=== PATIENT | male | born 1960 | race Caucasian/White ===

== ENCOUNTER 2019-01-12 19:43 | Day surgery (SDC) | payer OTHER ==
[~2019-01-12] VITALS: Ht 188 cm; Wt 141.5 kg
--- NOTE | 2019-01-12 20:11 | NUR ---
PT PRESENTING TO ER FOR RLQ ABD PAIN WITH N/V. PT STATES ANY MOVEMENT MAKES THE PAIN WORSE. NO ABD SX HX. CONNECTED TO ALL MONITORING, TACHY HR, OTHER VSS. DAUGHTER AT BEDSIDE. CALL LIGHTWITHIN REACH. AWAITING ORDERS AT THIS TIME
[2019-01-12] MEDS ORDERED: ONDANSETRON 2MG/ML, 2ML IVPush ONE (20:30)
[2019-01-12] MEDS ORDERED: MORPHINE SULFATE 4 MG/ML, 1ML IVPush PRN ×2 (20:30→22:30)
[2019-01-12] MEDS ORDERED: SODIUM CHLORIDE 0.9% 1,000ML IVBOLUS ONE (20:30)
[2019-01-12] MEDS ORDERED: SODIUM CHLORIDE FLUSH 10ML SYR IVF ONE (20:30)
--- NOTE | 2019-01-12 20:43 | NUR ---
ORDERS RECEIVED. IV PLACED, LABS DRAWN. PT AWARE OF NEED FOR UA. FAMILY AT BEDSIDE. CALL LIGHT WITHIN REACH.
--- NOTE | 2019-01-12 20:48 | NUR ---
PT OFFERED PAIN AND NAUSEA MEDS, DECLINING AT THIS TIME. WILL CONTINUE TO MONITOR
--- NOTE | 2019-01-12 21:07 | NUR ---
TECH AT BEDSIDE FOR EKG
[2019-01-12 21:12] LABS: BASOPHILS # (AUTO) 0.01 x10^3/uL (0-0.1); BASOPHILS % (AUTO) 0 % (0-1); EOSINOPHILS % (AUTO) 0 % (1-7); LYMPHOCYTES # (AUTO) 0.65 x10^3/uL (1-3.4); LYMPHOCYTES % (AUTO) 6 % (22-44); MD NO; MEAN CORPUSCULAR HEMOGLOBIN 29.7 pg (27.5-34.5); MEAN CORPUSCULAR HGB CONC 32.6 g/dL (33.2-36.2); MEAN CORPUSCULAR VOLUME 91.2 fL (81-97); MEAN PLATELET VOLUME 7.5 fL (7.4-10.4); MONOCYTES # (AUTO) 0.32 x10^3/uL (0.2-0.8); MONOCYTES % (AUTO) 3 % (2-9); NEUTROPHILS # (AUTO) 9.83 x10^3/uL (1.8-6.8); NEUTROPHILS % (AUTO) 91 % (42-75); PLATELET COUNT 243 x10^3/uL (130-400); RED BLOOD COUNT 5.04 x10^6/uL (4.38-5.82); RED CELL DISTRIBUTION WIDTH 13.5 % (9.4-14.8)
[2019-01-12 21:23] LABS: ALANINE AMINOTRANSFERASE 36 U/L (12-78); ALBUMIN 3.7 g/dL (3.4-5.0); ANION GAP 6 mmol/L (5-15); CALCIUM 9.5 mg/dL (8.5-10.1); CHLORIDE 105 mmol/L (98-107); CREATININE 0.93 mg/dL (0.7-1.3)
[2019-01-12 21:25] LABS: ALKALINE PHOSPHATASE 39 U/L (45-117); BILIRUBIN,TOTAL 0.3 mg/dL (0.2-1.0); TOTAL PROTEIN 7.3 g/dL (6.4-8.2)
--- NOTE | 2019-01-12 21:36 | NUR ---
PT TAKEN TO CT
[2019-01-12] MEDS ORDERED: OMNIPAQUE 350 MG/ML, 150 ML BOTTLE ONE (21:49)
--- NOTE | 2019-01-12 21:50 | NUR ---
BACK FROM CT. UP TO RESTROOM WITH STEADY GAIT TO OBTAIN SAMPLE.
[2019-01-12] MEDS ORDERED: PIPERACILLIN/TAZO/PMX 3.375GM 50 ML ONE (21:58)
[2019-01-12] MEDS ORDERED: PIPERACILLIN/TAZO/PMX 3.375GM 50 ML IV ONE (22:00)
[2019-01-12] MEDS ORDERED: SODIUM CHLORIDE 0.9% 1,000 ML IV ONE (22:02)
[2019-01-12 22:17] LABS: MICROSCOPIC NOT IND
[2019-01-12] MEDS ORDERED: ATORVASTATIN (22:25)
[2019-01-12] MEDS ORDERED: FISH OIL (22:25)
[2019-01-12] MEDS ORDERED: METOPROLOL (22:25)
[2019-01-12] MEDS ORDERED: ASPI-496 PO (22:25)
[2019-01-12] MEDS ORDERED: GLUCOSAMINE (22:25)
[2019-01-12 22:28] LABS: CULTURE INDICATED? NO
[2019-01-12] MEDS ORDERED: HYDROmorphone 1 MG/ML, 1ML INJ IVPush PRN (22:30)
[2019-01-12] MEDS ORDERED: ONDANSETRON 2MG/ML, 2ML IVPush PRN (22:30)
[2019-01-12] MEDS ORDERED: PROMETHAZINE 25 MG/ML, 1ML IM PRN (22:30)
[2019-01-12] MEDS ORDERED: SODIUM CHLORIDE FLUSH 10ML SYR IVF PRN (22:30)
--- NOTE | 2019-01-12 22:45 | NUR ---
REPORT GIVEN TO RN, PT READY FOR TRANSPORT TO FLOOR
[2019-01-12 23:06] VITALS: BP 108/68
[2019-01-13] VITALS: BP 108/68
[2019-01-13] MEDS ORDERED: HYDROmorphone 1 MG/ML, 1ML INJ IV PRN
[2019-01-13] MEDS ORDERED: PROMETHAZINE 25 MG/ML, 1ML IM PRN
[2019-01-13] MEDS: SODIUM CHLORIDE 0.9% 1,000 ML IV SCH ×3 (00:34→14:40)
[2019-01-13 02:59] VITALS: BP 125/68
[2019-01-13] MEDS: PIPERACILLIN/TAZO/PMX 3.375GM 50 ML IV SCH ×2 (04:23→10:00)
[2019-01-13 07:39] VITALS: BP 112/70
[2019-01-13] MEDS ORDERED: EPINEPHRINE 1 MG/ML, 1ML ONE (10:48)
[2019-01-13] MEDS ORDERED: BUPIVACAINE/PF 0.5% ONE (10:48)
[2019-01-13] MEDS ORDERED: FENTANYL PF 100 MCG/2ML ONE ×2 (11:38→11:52)
[2019-01-13] MEDS ORDERED: MIDAZOLAM 1 MG/ML, 2ML ONE (11:51)
[2019-01-13] MEDS ORDERED: SUGAMMADEX 200 MG/2 ML IVPush ONE (12:01)
[2019-01-13] MEDS ORDERED: ALBUTEROL/IPRATROPIUM 2.5MG/0.5MG, 3 ML NPPB PRN (12:30)
[2019-01-13] MEDS ORDERED: hydrALAzine 20 MG/ML, 1ML IV PRN (12:30)
[2019-01-13] MEDS ORDERED: ONDANSETRON ODT 8 MG PO PRN (12:30)
[2019-01-13] MEDS ORDERED: FENTANYL PF 100 MCG/2ML IV PRN (12:30)
[2019-01-13] MEDS ORDERED: METOPROLOL 1 MG/ML, 5ML IV PRN (12:30)
[2019-01-13] MEDS ORDERED: PROMETHAZINE 25 MG/ML, 1ML IV PRN (12:30)
[2019-01-13] MEDS ORDERED: LABETALOL 5MG/ML, 20ML IV PRN (12:30)
[2019-01-13] MEDS ORDERED: ACETAMINOPHEN 325 MG TABLET PO PRN (12:30)
[2019-01-13] MEDS ORDERED: ONDANSETRON 2MG/ML, 2ML IV PRN (12:30)
[2019-01-13] MEDS ORDERED: HYDROmorphone 2 MG/ML, 1ML IVPush PRN (12:30)
[2019-01-13] MEDS ORDERED: OXYcodone 5 MG/5 ML ORAL.SOL UDC PO PRN ×2 (12:30→17:00)
[2019-01-13] MEDS ORDERED: NEOSTIGMINE 1 MG/ML, 10ML ONE (12:40)
[2019-01-13] MEDS ORDERED: ROCURONIUM 10MG/ML,5ML ONE (12:40)
[2019-01-13] MEDS ORDERED: PROPOFOL 10 MG/ML, 20ML ONE (12:40)
[2019-01-13] MEDS ORDERED: ONDANSETRON 2MG/ML, 2ML ONE (12:40)
[2019-01-13] MEDS ORDERED: DEXAMETHASONE 4 MG/ML, 1ML ONE (12:40)
[2019-01-13] MEDS ORDERED: CEFAZOLIN 1,000 MG ONE ×3 (12:40)
[2019-01-13] MEDS ORDERED: GLYCOPYRROLATE 0.2MG/1ML, 5ML ONE (12:40)
[2019-01-13] MEDS ORDERED: SUCCINYLCHOLINE 20 MG/ML, 10ML ONE (12:40)
[2019-01-13] MEDS ORDERED: KETOROLAC 30 MG/1 ML ONE (13:00)
[2019-01-13] MEDS ORDERED: OXYcodone 5 MG/5 ML ORAL.SOL UDC ONE (13:00)
[2019-01-13] MEDS ORDERED: KETOROLAC 30 MG/1 ML IVPush ONE (13:30)
[2019-01-13 14:19] VITALS: BP 123/75
[2019-01-13] MEDS ORDERED: MORPHINE SULFATE 4 MG/ML, 1ML IVPush PRN ×2 (15:00)
[2019-01-13] MEDS ORDERED: DIPHENHYDRAMINE 50 MG/ML, 1ML IVPush PRN (15:00)
[2019-01-13] MEDS ORDERED: LACTATED RINGERS 1,000 ML IV SCH (15:00)
[2019-01-13] MEDS ORDERED: ONDANSETRON 2MG/ML, 2ML IVPush PRN ×2 (15:00)
[2019-01-13] MEDS ORDERED: ENOXAPARIN 40 MG/0.4 ML SQ SCH (17:00)
[2019-01-13] MEDS ORDERED: KETOROLAC 30 MG/1 ML IV PRN (19:00)
[2019-01-13] MEDS ORDERED: OXYC10TA6 PO (19:43)
[2019-01-13] MEDS ORDERED: ACET-2065 PO (19:44)
[2019-01-13] MEDS ORDERED: IBUP-1222 PO (19:45)
[2019-01-13] MEDS ORDERED: DOCU-131 PO (19:46)
[2019-12-21] MEDS ORDERED: IBUPROFEN 600 MG TABLET PO SCH (16:00)
== END 2019-01-13 20:55 | disposition home or self-care (01) ==
LOC: ED 22:17 → OUT 22:38 → UNDOADMIN 22:38 → EDIP 22:38 → 3N 22:55 → EDIP 22:55 → EDSTATUS 01-13 14:30 → OUT 01-13 20:55 → UNDODISIN 01-13 20:55
PROVIDERS: ATTEND Emergency Medicine
DX: K35.30 Acute appendicitis with localized peritonitis, without perforation or gangrene (principal); J96.20 Acute and chronic respiratory failure, unspecified whether with hypoxia or hypercapnia; I10 Essential (primary) hypertension; G47.33 Obstructive sleep apnea (adult) (pediatric); E78.00 Pure hypercholesterolemia, unspecified; E66.01 Morbid (severe) obesity due to excess calories; I48.92 Unspecified atrial flutter; Z79.82 Long term (current) use of aspirin; Z79.899 Other long term (current) drug therapy; Z82.5 Family history of asthma and other chronic lower respiratory diseases; Z82.3 Family history of stroke; Z80.9 Family history of malignant neoplasm, unspecified
CPT/HCPCS: 36415; 44970; 74177; 80053; 81003; 85025; 88304; 93005; 99285; J0171; J0330; J0690; J1100; J1650; J1885; J2250; J2270; J2405; J2543; J2704; J2710; J3010; J7030; Q9967; G0378

== ENCOUNTER → 2020-08-10 | Outpatient (CLI) | payer OTHER ==
[~2020-08-10] MED LIST: ACET-2065 PO; ASPI-496 PO; ATORVASTATIN; DOCU-131 PO; FISH OIL; GLUCOSAMINE; IBUP-1222 PO; METOPROLOL; OXYC10TA6 PO; REGADENOSON 0.4 MG/5 ML SYRINGE ONE
== END | disposition home or self-care (01) ==
LOC: CFH 12:47
PROVIDERS: ATTEND Internal Medicine Cardiovascular Disease
DX: I44.7 Left bundle-branch block, unspecified (principal); I10 Essential (primary) hypertension; I25.10 Atherosclerotic heart disease of native coronary artery without angina pectoris; I48.0 Paroxysmal atrial fibrillation
CPT/HCPCS: 78452; 93017; A9502; J2785

== ENCOUNTER → 2020-08-16 | Outpatient (CLI) | payer OTHER ==
[~2020-08-16] MED LIST changes: -REGADENOSON 0.4 MG/5 ML SYRINGE ONE
== END | disposition home or self-care (01) ==
LOC: CVU 09:34
PROVIDERS: ATTEND Internal Medicine Cardiovascular Disease
DX: I10 Essential (primary) hypertension (principal); I25.10 Atherosclerotic heart disease of native coronary artery without angina pectoris; I48.0 Paroxysmal atrial fibrillation
CPT/HCPCS: 93306; 93356